=== PATIENT | male | born 1980 | race Two or more races ===

== ENCOUNTER 2022-03-11 09:28 | Outpatient (CLI) | payer OTHER ==
[~2022-03-11 09:28] MED LIST: PRILOSEC OTC20 MG PO; PROTONIX20 MG PO
== END 2022-03-11 09:40 | disposition home or self-care (01) ==
LOC: MRI 09:28
PROVIDERS: ATTEND Otolaryngology
DX: K13.70 Unspecified lesions of oral mucosa (principal)
CPT/HCPCS: 70543

== ENCOUNTER 2022-03-15 05:44 | Day surgery (SDC) | payer OTHER ==
[~2022-03-15] VITALS: Ht 165.1 cm; Wt 76.7 kg
== END 2022-03-15 12:45 | disposition home or self-care (01) ==
LOC: CIR.AMB 05:44
PROVIDERS: ATTEND Otolaryngology
DX: K14.8 Other diseases of tongue (principal); Z20.822 Contact with and (suspected) exposure to COVID-19; K21.9 Gastro-esophageal reflux disease without esophagitis; H92.02 Otalgia, left ear; K13.70 Unspecified lesions of oral mucosa